=== PATIENT | male | born 1995 | race Hispanic/Latino ===

== ENCOUNTER 2017-01-07 08:37 | Emergency (ER) | payer OTHER ==
[~2017-01-07] VITALS: Ht 172.7 cm; Wt 81.7 kg
== END 2017-01-07 08:53 | disposition home or self-care (01) ==
LOC: ED 08:37
DX: Z00.8 Encounter for other general examination (principal)

== ENCOUNTER 2020-11-15 05:23 | Emergency (ER) | payer SELFPAY ==
[~2020-11-15] VITALS: Ht 175.3 cm; Wt 86.2 kg
== END 2020-11-15 07:30 | disposition short-term general hospital (02) ==
LOC: ED 05:23
DX: U07.1 COVID-19 (principal)
CPT/HCPCS: 99284; C9803; U0003